=== PATIENT | female | born 1950 | race Caucasian/White ===

== ENCOUNTER → 2022-01-31 | Outpatient (CLI) | payer MEDICARE ==
[~2022-01-31] MED LIST: ALDACTONE 25MG25 MG PO; BENADRYL 25MG C25 MG PO; COZAAR100 MG PO; ECOTRIN81 MG PO; K-DUR TAB 10 M10 MEQ PO; LASIX20 MG PO; LASIX40 MG PO; LEVOFLOXACIN500 MG PO; LOPRESSOR 25 MG25 MG PO; NICOTINE PATCH1 EAC2 TOP; TENORMIN 50 MG50 MG PO; ZANTAC150 MG PO; ZETIA 10 MG TAB10 MG PO; ZOCOR20 MG PO
== END ==
LOC: HEART CORB 09:01
DX: I50.9 Heart failure, unspecified (principal); I48.91 Unspecified atrial fibrillation; I27.20 Pulmonary hypertension, unspecified; I08.3 Combined rheumatic disorders of mitral, aortic and tricuspid valves
CPT/HCPCS: ECHO; 93306